=== PATIENT | male | born 2000 | race Caucasian/White ===

== ENCOUNTER 2024-12-06 07:10 | Outpatient (CLI) | payer BC, SELFPAY ==
--- NOTE | ~2024-12-06 | MR_ITS ---
EXAMINATION: MR foot RT wo con DATE: 12/06/2024 07:51 INDICATION: Right foot stress fracture TECHNIQUE: Magnetic resonance imaging (MRI) of the right fore/mid foot was performed without intravenous contrast. Sequences included sagittal T1-weighted FSE, sagittal fluid sensitive FSE STIR, coronal PD-weighted FS FSE, coronal T1- weighted FSE, axial PD-weighted FS FSE, and axial PD-weighted FSE. A gerardo was placed over the region of concern located dorsal to the second metatarsal diaphysis. COMPARISON: None FINDINGS: Bone alignment is normal. There is normal bone marrow signal throughout with no reactive edema, fracture or pathologic marrow replacing process. Joint spaces are normal. No erosions. Lisfranc ligament complex as well as the collateral ligament complex at the metatarsophalangeal and interphalangeal joints are all normal. Visualized portion of the flexor and extensor tendons are normal. Intrinsic musculature of the foot is normal. There is a tiny focus of susceptibility artifact centered at or near the plantar skin surface between the bases of the fourth and fifth toes. Physiologic amount fluid in the joint spaces. No joint effusions, tenosynovitis, bursitis or other abnormal fluid collections. IMPRESSION: 1. Tiny focus of susceptibility artifact consistent with foreign body at or near the plantar skin surface between the bases of the fourth and fifth toes. Otherwise unremarkable MRI of the right fore and midfoot with no stress reaction/fracture. Reviewed, dictated and finalized at location A. IMPRESSION: 1. Tiny focus of susceptibility artifact consistent with foreign body at or maral r the plantar skin surface between the bases of the fourth and fifth toes. Othe rwise unremarkable MRI of the right fore and midfoot with no stress reaction/fr acture.
== END 2024-12-06 07:11 | disposition home or self-care (01) ==
LOC: MICIMG 07:12
PROVIDERS: PCP Podiatrist Foot & Ankle Surgery; Visit Provider Podiatrist Foot & Ankle Surgery
DX: M84.374K Stress fracture, right foot, subsequent encounter for fracture with nonunion (principal)
CPT/HCPCS: 73718